=== PATIENT | male | born 1965 | race Two or more races ===

== ENCOUNTER → 2018-02-25 | Outpatient (CLI) | payer OTHER ==
[~2018-02-25] MED LIST: COZAAR100 MG; GLIPIZIDE5 MG; METFORMIN HCL500 MG; ZOCOR20 MG
== END | disposition home or self-care (01) ==
LOC: NUCLEAR 08:19
DX: I11.9 Hypertensive heart disease without heart failure (principal)

== ENCOUNTER 2018-02-27 07:28 | Outpatient (CLI) | payer OTHER | END 2018-02-27 07:32 | disposition home or self-care (01) | LOC: SONOGRAMA 07:28 | DX: R10.9 Unspecified abdominal pain (principal); K73.0 Chronic persistent hepatitis, not elsewhere classified; N18.9 Chronic kidney disease, unspecified; K76.0 Fatty (change of) liver, not elsewhere classified ==

== ENCOUNTER 2018-11-15 16:55 | Emergency (ER) | payer OTHER ==
[~2018-11-15] VITALS: Ht 180.3 cm; Wt 122.5 kg
== END 2018-11-15 22:31 | disposition home or self-care (01) ==
LOC: ER 16:55
DX: N20.2 Calculus of kidney with calculus of ureter (principal); N39.0 Urinary tract infection, site not specified; K76.0 Fatty (change of) liver, not elsewhere classified; B96.29 Other Escherichia coli [E. coli] as the cause of diseases classified elsewhere

== ENCOUNTER → 2021-11-30 | Emergency (ER) | payer OTHER ==
[~2021-11-30] VITALS: Ht 180.3 cm; Wt 117.5 kg
[~2021-11-30] MED LIST changes: +ATORVASTATIN CA40 MG PO; +CARDIZEM CD240 MG PO; -GLIPIZIDE5 MG; +GLIPIZIDE5 MG PO; +TRULICITY4.5 MG/0.5 SUBCUTANEO; +ZESTRIL40 M1 PO
== END | disposition home or self-care (01) ==
LOC: ER 08:45
DX: N23 Unspecified renal colic (principal); I10 Essential (primary) hypertension; E11.9 Type 2 diabetes mellitus without complications

== ENCOUNTER 2023-11-06 12:11 | Inpatient (IN) | payer OTHER ==
[~2023-11-06] VITALS: Ht 180.3 cm; Wt 77.1 kg
[2023-11-06] MEDS ORDERED: ATORVASTATIN CA40 MG (12:23)
[2023-11-06] MEDS ORDERED: MOUNJARO15 MG/0.5 (12:24)
[2023-11-06] MEDS ORDERED: SYNJARDY 12.5-1 EACH (12:24)
[2023-11-06] MEDS ORDERED: ZESTRIL40 M1 (12:24)
[2023-11-06] MEDS ORDERED: DILTIAZEM ER240 M2 (12:24)
--- NOTE | 2023-11-06 12:26 | NUR ---
PTE ALERTA Y ORIENTADO X3 REFIERE VENIR A ZAHRA POR REFERIDO DE LA DRA. LENA COELHO DEBIDO A INFECCION EN TESTICULO RT CON INFLAMACION. SE MIDEN S/V Y SE UBICA.
[2023-11-06] MEDS ORDERED: 0.9 % SODIUM CHLORIDE 1,000 ML IV STA (12:33)
--- NOTE | 2023-11-06 12:53 | NUR ---
PACIENTE EVALUADO POR DR. BECK QUIEN ORDENA [place] MEDICO. SE EDUCA ACERCA DEL MISMO Y REFIERE ENTENDER. SE CANALIZA Y COLECTAN MUESTRAS DE LABORATORIO MEDIANTE MEDIDAS ASEPTICAS.
[2023-11-06 13:12] LABS: HEMATOCRIT 40.5 % (39.0-48.0); HEMOGLOBIN 13.5 g/dL (13-16.00); MEAN CELL VOLUME 86.7 fL (80.0-100.00); MEAN CORPUSCULAR HEMOGLOBIN 28.9 pg (27.00-32.0); MEAN CORPUSCULAR HGB CONC 33.3 g/dl (32.0-36.0); PLATELET COUNT 216 K/uL (150-450); RED BLOOD COUNT 4.67 M/uL (4.00-6.00); RED CELL DISTRIBUTION WIDTH 14.7 % (11.5-14.5)
[2023-11-06 13:14] LABS: URINE APPEARANCE Clear; URINE BILIRRUBIN Negative (NEGATIVE); URINE BLOOD Negative; URINE COLOR Yellow; URINE KETONE Negative (NEGATIVE); URINE LEUKOCYTE Negative; URINE NITRATE Negative; URINE PROTEIN Negative (NEGATIVE); URINE UROBILINOGEN 0.2 E.U./dl
[2023-11-06 13:16] LABS: URINE BACTERIA 41.5 uL (0.0-1933); URINE EPITHELIAL CELLS 4.6 uL (0.0-38.8); URINE WBC 3.5 uL (0.0-23.2)
[2023-11-06 13:30] LABS: URINE GLUCOSE 500 MG/DL (NEGATIVE); URINE RBC 0.3 uL (0.0-20.8)
[2023-11-06 13:40] LABS: CALCIUM 8.9 mg/dL (8.5-10.1); CREATININE SERUM 1.79 mg/dL (0.70-1.30); GFR 39.2; POTASSIUM 4.4 mEq/L (3.5-5.1)
[2023-11-06] MEDS ORDERED: PIPERACILLIN/TAZOBACTAM SODIUM 3.375 GM VIAL IV ONE ×2 (14:45→15:04)
--- NOTE | 2023-11-06 15:49 | NUR ---
SE RECIBE MASCULINO ALERTA Y ORIENTADO X3 EN LETTY CON BARANDAS ELEVADAS POR SALES SEGURIDAD. VENOPUNCION PATENTE BAJANDO IV FLUIDS POR REGULADOR. PTE PENDIENTE A CONSULTA CON .
[2023-11-06] MEDS ORDERED: INSULIN GLARGINE,HUM.REC.ANLOG 1,000 UNITS/10 ML UNITS SUBCUTANEO SCH (17:00)
[2023-11-06] MEDS ORDERED: VANCOMYCIN HCL 1,000 MG VIAL IV SCH (17:34)
[2023-11-06] MEDS ORDERED: CEFEPIME HCL 1,000 MG in 0.9 % SODIUM CHLORIDE 50 ML IV SCH (17:41)
[2023-11-06] MEDS ORDERED: 0.9 % SODIUM CHLORIDE 1,000 ML IV SCH (17:45)
[2023-11-06] MEDS ORDERED: DEXTROSE 50 % IN WATER 0.5 G/ML DISP.SYRIN IV PRN (17:45)
[2023-11-06] MEDS ORDERED: INSULIN LISPRO 1,000 UNIT/10 ML UNITS SUBCUTANEO PRN (17:45)
[2023-11-06] MEDS ORDERED: ACETAMINOPHEN 500 MG GEL..CAP PO PRN (17:45)
[2023-11-06] MEDS ORDERED: CEFEPIME HCL 2,000 MG VIAL ONE (18:24)
[2023-11-06] MEDS ORDERED: VANCOMYCIN HCL 1,000 MG VIAL ONE (18:25)
[2023-11-06 18:57] VITALS: BP 134/85
[2023-11-06 18:58] VITALS: BP 134/85; O2SAT 98
[2023-11-06 19:16] LABS: INR 1.05; PARTIAL THROMBOPLASTIN TIME 30.8 SECONDS (22.0-34.0); PROTHROMBIN TIME 11.4 SECONDS (9.0-11.5)
[2023-11-07] VITALS: BP 168/68
[2023-11-07 01:57] VITALS: BP 152/88
[2023-11-07 05:57] LABS: BILIRUBIN TOTAL 0.92 mg/dL (0.3-1.2); CALCIUM 8.8 mg/dL (8.5-10.1); CREATININE SERUM 1.47 mg/dL (0.70-1.30); GFR 49.2; GLOBULINA 2.9 G/DL (2.4-3.5); POTASSIUM 4.53 mEq/L (3.5-5.1); TOTAL PROTEIN 5.9 gm/dL (6.4-8.2); TSH 1.09 uIU/mL (0.358-3.74)
[2023-11-07] MEDS ORDERED: SODIUM CHLORIDE 0.45 % 1,000 ML IV SCH (08:00)
[2023-11-07] MEDS ORDERED: ATORVASTATIN CALCIUM 40 MG TABLET PO SCH (09:00)
[2023-11-07] MEDS ORDERED: ENOXAPARIN SODIUM 40 MG/0.4 ML SYRINGE SUBCUTANEO SCH (09:00)
[2023-11-07] MEDS ORDERED: DILTIAZEM HCL 240 MG CAP.SR.24H PO SCH (09:00)
[2023-11-07] MEDS ORDERED: LISINOPRIL 40 MG TABLET PO SCH (09:00)
[2023-11-07 09:49] VITALS: BP 140/74; O2SAT 95
[2023-11-07] MEDS ORDERED: LINEZOLID 600 MG TABLET PO SCH (17:00)
[2023-11-07 17:41] VITALS: BP 139/75; O2SAT 97
[2023-11-07] MEDS ORDERED: PIPERACILLIN/TAZOBACTAM SODIUM 3.375 GM in 0.9 % SODIUM CHLORIDE 100 ML IV SCH (18:00)
[2023-11-08 01:38] VITALS: BP 136/73
[2023-11-08 09:49] VITALS: BP 147/84
[2023-11-08 16:05] VITALS: BP 156/84
[2023-11-09 01:31] VITALS: BP 137/81; O2SAT 100
[2023-11-09 07:59] LABS: HEMATOCRIT 39.6 % (39.0-48.0); HEMOGLOBIN 13.5 g/dL (13-16.00); MEAN CORPUSCULAR HEMOGLOBIN 29.2 pg (27.00-32.0); PLATELET COUNT 243 K/uL (150-450); RED BLOOD COUNT 4.61 M/uL (4.00-6.00); RED CELL DISTRIBUTION WIDTH 13.8 % (11.5-14.5)
[2023-11-09 08:59] LABS: BILIRUBIN TOTAL 0.53 mg/dL (0.3-1.2); CALCIUM 9.5 mg/dL (8.5-10.1); CREATININE SERUM 1.5 mg/dL (0.70-1.30); GFR 48.07; GLOBULINA 3.5 G/DL (2.4-3.5); PHOSPHOROUS 3.5 mg/dL (2.5-4.9); POTASSIUM 4.9 mEq/L (3.5-5.1); TOTAL PROTEIN 6.5 gm/dL (6.4-8.2)
[2023-11-09 09:08] LABS: C-REACTIVE PROTEIN 4.3 MG/DL (0.00-0.29)
[2023-11-09 09:23] VITALS: BP 143/95
[2023-11-09 18:13] VITALS: BP 131/72
[2023-11-09] MEDS ORDERED: DIPHENHYDRAMINE HCL 50 MG CAPSULE PO STA (22:18)
[2023-11-10 03:18] VITALS: BP 116/74; O2SAT 98
[2023-11-10] MEDS ORDERED: INSULIN LISPRO 1,000 UNIT/10 ML UNITS SUBCUTANEO SCH (08:00)
[2023-11-10 08:50] VITALS: BP 142/77
[2023-11-10] MEDS ORDERED: CEFTRIAXONE SODIUM 2,000 MG VIAL IV SCH (17:00)
[2023-11-10] MEDS ORDERED: INSULIN GLARGINE,HUM.REC.ANLOG 1,000 UNITS/10 ML UNITS SUBCUTANEO SCH (17:00)
[2023-11-10 17:52] VITALS: BP 145/81; O2SAT 100
[2023-11-11 02:03] VITALS: BP 136/71
[2023-11-11 09:07] VITALS: BP 138/81; O2SAT 95
[2023-11-11] MEDS ORDERED: SODIUM CL 0.9% 50 ML IV.SOLN IV ONE (09:16)
[2023-11-11 18:19] VITALS: BP 156/79; O2SAT 97
[2023-11-12 02:19] VITALS: BP 156/83
[2023-11-12] MEDS ORDERED: CEFDINIR300 MG PO (08:45)
[2023-11-12] MEDS ORDERED: INTESTINEX680 M2 PO (08:46)
[2023-11-12 09:13] VITALS: BP 142/72
== END 2023-11-12 14:33 | disposition home or self-care (01) | DRG 872 ==
LOC: MEDI → ER 12:12 → MEDI 18:24 → SEC-K 18:24 → MEDI 19:49
PROVIDERS: Emergency Medicine; General Practice; Internal Medicine Endocrinology, Diabetes & Metabolism; Internal Medicine Infectious Disease; ADMIT Internal Medicine; ATTEND Internal Medicine
PROC: BV44ZZZ Ultrasonography of Scrotum (ICD-10-PCS; principal; 2023-11-06)
PROC: BV44ZZZ Ultrasonography of Scrotum (ICD-10-PCS; 2023-11-10)
DX: A41.9 Sepsis, unspecified organism (principal); N17.9 Acute kidney failure, unspecified; N49.2 Inflammatory disorders of scrotum; B96.89 Other specified bacterial agents as the cause of diseases classified elsewhere; I12.9 Hypertensive chronic kidney disease with stage 1 through stage 4 chronic kidney disease, or unspecified chronic kidney disease; E11.22 Type 2 diabetes mellitus with diabetic chronic kidney disease; N18.9 Chronic kidney disease, unspecified; Z79.4 Long term (current) use of insulin; E78.5 Hyperlipidemia, unspecified; E11.65 Type 2 diabetes mellitus with hyperglycemia